=== PATIENT | female | born 2000 | race Caucasian/White ===

== ENCOUNTER 2025-07-29 01:15 | Emergency (ER) | payer MEDICAID ==
[~2025-07-29] VITALS: Ht 152.4 cm; Wt 53.0 kg
[2025-07-29 01:24] VITALS: O2SAT 100
[2025-07-29 02:30] LABS: CLARITY URINE CLEAR (CLEAR); COLOR URINE YELLOW (YELLOW); GLUCOSE URINE NEGATIVE (NEGATIVE); KETONES URINE TRACE (NEGATIVE); LEUKOCYTE ESTERASE URINE 1+ (NEGATIVE); NITRITE URINE NEGATIVE (NEGATIVE); OCCULT BLOOD URINE NEGATIVE (NEGATIVE); PH URINE 6.5 (4.5-8.0); PROTEIN URINE 1+ (NEGATIVE); SPECIFIC GRAVITY URINE 1.044 (1.005-1.030); UROBILINOGEN URINE 1.0 E.U./dL (0.2-1.0)
[2025-07-29 02:40] VITALS: BP 121/69; PULSE 79; RESP 18; TEMP 36.7; O2SAT 100
[2025-07-29] MEDS ORDERED: PHEN-910 MT (02:49)
[2025-07-29] MEDS ORDERED: SULF1TAB48 MT (02:49)
[2025-07-29 05:07] LABS: SQUAMOUS EPITHELIAL CELL URINE FEW /lpf (RARE/1+)
[2025-07-29 05:08] LABS: RBC URINE 0-2 /hpf (0-2); WBC URINE 0-2 /hpf (0-2)
[2025-07-29 05:09] LABS: BACTERIA URINE NONE SEEN
== END 2025-07-29 03:03 | disposition home or self-care (01) ==
LOC: ER 01:15
DX: R39.15 Urgency of urination (principal); N39.0 Urinary tract infection, site not specified
CPT/HCPCS: 81003; 81025; 87591; 99283